=== PATIENT | female | born 2000 | race Caucasian/White ===

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

== ENCOUNTER 2020-12-29 13:00 | Emergency (ER) | payer OTHER, SELFPAY ==
[2020-12-29 13:01] VITALS: BP 149/108; PULSE 122; RESP 20; TEMP 37.6; O2SAT 95; BMI 23.1
[2020-12-29 13:05] VITALS: BP 149/108; PULSE 122; RESP 20; TEMP 37.6; O2SAT 95
--- NOTE | 2020-12-29 13:22 | CT_ITS ---
STUDY: CT SOFT TISSUE NECK WITH CONTRAST REASON FOR EXAM: Female, 20 years old. Sore throat and fever x 1 week, trouble swallowing. RADIATION DOSAGE (If Supplied By Facility): CTDIvol = ( 12.99 ) mGy, DLP = ( 392.71 ) mGycm TECHNIQUE: The patient was scanned in a multi-detector CT scanner. High resolution transaxial imaging was performed following intravenous administration of 75mL Isovue-370. Sagittal and coronal images were reconstructed. Individualized dose optimization techniques were used for this CT. COMPARISON: None. FINDINGS: Normal bilateral parotid glands. Normal bilateral commission specialist spaces. Normal bilateral parapharyngeal spaces. Normal bilateral carotid spaces. Normal bilateral sublingual and submandibular glands and spaces. There is diffuse adenoidal enlargement consistent with adenoidal hyperplasia. Normal retropharyngeal space. Normal perivertebral space. There are enlarged tonsils. The visualized tongue, tongue base and oropharynx are normal. There are enlarged jugular lymph nodes on the left more than the right measuring up to 2.5 cm. There is 4.2 cm adenopathy or mass in the left supraclavicular region. Normal epiglottis, bilateral vallecula and hypopharynx. The pre-epiglottic and paraglottic adipose spaces are normal. Normal visualized bilateral piriform sinuses, aryepiglottic folds, vocal cords, and arytenoid-cricoid articulations. Normal subglottic trachea. Normal bilateral lobes of the thyroid gland. Normal visualized pulmonary apices. There is mucosal thickening in the sphenoid sinus. Normal visualized cervical spine. CT/Soft Tissue Neck WITH Contrast IMPRESSION: Enlarged tonsils and adenoids. No abscess. Lymphadenopathy in the neck and left supraclavicular region. Electronically Signed: Martin Arreola MD at 15:09 EST , Service support ,
[2020-12-29] MEDS: Ketorolac 30 MG/ML Syringe IV (13:36)
[2020-12-29 13:41] LABS: Hematocrit 39.7 % (37-47); Mean Corp Hgb Conc 32.7 g/dL (32-36); Mean Corpuscular Hgb 26.9 pg (27.0-32.0); Mean Platelet Vol. 10.5 fl (6.2-12.0); POSITIVE MORPHOLOGY YES; Platelet Count 244 K/mm3 (150-450); RBC Distribution Width CV 14.2 % (11.6-14.6); RBC Distribution Width SD 41.6 fl (35.1-43.9); Red Blood Count 4.84 M/mm3 (4.2-5.4); White Blood Count 9.1 K/mm3 (4.4-11.0)
[2020-12-29 14:00] LABS: Anion Gap 9 (5-15); BUN 13 mg/dL (7-18); BUN/Creat Ratio 12.5 RATIO (10-20); Calcium,Total 8.6 mg/dL (8.5-10.1); Chloride 105 mmol/L (98-107); Creatinine, Serum 1.04 mg/dL (0.55-1.02); EST Glomerular Filtration Rate 71 mL/min (>60); Est Glom Filt Rate - Afr Amer 86 mL/min (>60); Estimated Creatinine Clearance 74.51 ml/min; Glucose 114 mg/dL (74-106); Potassium 3.5 mmol/L (3.5-5.1); Sodium Level 139 mmol/L (136-145)
[2020-12-29 14:05] LABS: Differential Indicated MANUAL DIFF
[2020-12-29 14:07] LABS: Lymphocyte 45 % (19-41); Monocyte 7 % (0-10); Neutrophil-Segmented 48 % (47-70); Total Cells Counted 100 (MANUAL DIFF)
[2020-12-29 14:08] LABS: Absolute Neutrophil Count 4.3 X10^3/uL (2.0-7.7); Neutrophil # 4.34 X10^3/uL (2.7-7.7); Platelet Estimate ADEQUATE (ADEQ); Red Cell Morphology NORM C+C NORMAL (NORM C&C)
[2020-12-29 14:09] LABS: Absolute Lymphocyte Count 4.07 X10^3/uL (0.83-4.51); Internal QC Validated? YES +Cl - CLEAR BKGD; Lymphocyte # 4.07 X10^3/ul (4.0)
[2020-12-29 14:11] LABS: Monotest POSITIVE (Negative)
--- NOTE | 2020-12-29 15:31 | ED.VISSUMM ---
- ER Visit Summary Date of Service: 12/29/20 Chief Complaint: [Sore throat] History of Present Illness: The patient is a 20 F [does the emergency department with complaint of a sore throat that started 8 days ago. Patient was seen at urgent care x2 and had a negative strep screen as well as negative mono test and negative Covid test. Patient was also seen by her primary care physician. Patient initially was started on Biaxin but she developed a rash to her face so she discontinued that after 2 days. Patient continues to have fevers up to 104 at home. She is having hard time sleeping at night. She continues to complain of throat pain. She denies difficulty swallowing her own secretions. She denies any voice changes. Patient has no medical history.] Physical Examination: [HEENT-PERRLA, EOMI. Cranial nerves II through XII grossly intact. TMs clear. Mucous membranes moist. Patient does have pharyngeal erythema with enlarged tonsils with faint exudates noted. No peritonsillar abscesses noted. Uvula is in the midline. No significant trismus on exam. Patient does have adenopathy anteriorly and posteriorly. Cardiovascular-regular rate and rhythm without murmur or ectopy Lungs-clear to auscultation, chest wall stable without crepitus or subcu emphysema Abdomen-normoactive bowel sounds, soft, nontender, no rebound or rigidity, no peritoneal signs. Extremities-intact ?4, normal range of motion, normal pulses, atraumatic] Test Results: CBC with differential showed a white count of 9.1, hemoglobin 13, hematocrit 40, placed 244. She had 45% lymphocytes. Patient's hamstrings were unremarkable. Monospot was positive. CT scan of the neck showed enlarged tonsils without evidence of peritonsillar abscess. Patient also was noted to have diffuse adenopathy. [] Emergency Department Course and Treatment: [IV line established on arrival. Patient was given Toradol 30 mg IV. Patient did have good pain relief with that.] Treatment Plan: [Patient will be given a prescription for few [place] for pain. She will be referred to ENT for follow-up.] Disposition: [Discharged home in stable condition] Impression: [Mononucleosis This note was generated with [employer] dictation software. It may contain incorrect words, spelling, and punctuation that were not noted in review of the chart prior to signing ED Disposition - Plan for ED Patient: Referrals: Malys,Jesenia, DO [Primary Care Provider] -
--- NOTE | 2020-12-29 15:34 | ED.DEP ---
ED Disposition - Plan for ED Patient: Instructions: ED Mononucleosis Prescriptions: Hydrocodone Bitart/Apap 5-325 [[place] 5MG-325MG] 1 tab PO Q4H PRN PRN 2 Days #10 tab PRN Reason: Pain Prescription Printed Referrals: Jesenia Davenport DO [Primary Care Provider] - Mark Brown MD [STAFF PHYSICIAN] - 3-5 Days
== END 2020-12-29 15:59 | disposition home or self-care (01) ==
LOC: ED 14:02
PROVIDERS: Emergency Provider Emergency Medicine; PCP Family Medicine
DX: B27.90 Infectious mononucleosis, unspecified without complication (principal)
CPT/HCPCS: 70491; 80048; 85025; 86308; 87070; 87077; 96374; 99284; Q9967; A4216